=== PATIENT | female | born 1990 | race Caucasian/White ===

== ENCOUNTER 2021-06-06 10:37 | Emergency (ER) | payer OTHER, SELFPAY ==
--- NOTE | ~2021-06-06 | CT_ITS ---
EXAMINATION: CT BRAIN AND CT CERVICAL SPINE WITHOUT CONTRAST. CLINICAL INFORMATION: Trauma. COMPARISON: None TECHNIQUE: 5 mm thin axial and reformatted 2 mm thin sagittal coronal images of brain were obtained without contrast. Subsequently 3 mm thin axial and reformatted 2 mm thin sagittal and coronal images of cervical spine were obtained without contrast. DLP 1109 mGy FINDINGS: BRAIN: There is no acute intra-axial, extra-axial bleed, masses and collection. There is no midline shift. The perez to white matter differentiation maintained normal. There is no lacunar infarction or edema seen. The lateral ventricles are symmetrical in size and configuration without enlargement. Bone windows reveal no calvarial abnormality. There is no scalp soft tissue abnormality seen. Bilateral paranasal sinuses and mastoid air cells are well aerated and unremarkable. CERVICAL SPINE: There is mild straightening of cervical lordosis. The vertebral heights, alignment and disc heights are normal. The craniovertebral junction and the C1-C2 alignment is normal. There is mild uncovertebral hypertrophic changes at the C3-C4 disc level moderately narrowing the right neural foramina. Rest the disc levels are unremarkable. The prevertebral soft tissues are normal. The thyroid lobes are symmetrical and normal. The airway is widely patent. CT/CT cervical spine wo con IMPRESSION: No acute intracranial process seen. Mild straightening of cervical lordosis without any acute fracture or dislocation. Moderate narrowing of C3-4 neural foramina from uncovertebral hypertrophic changes.
--- NOTE | ~2021-06-06 | XR_ITS ---
EXAMINATION: XR LUMBOSACRAL SPINE CLINICAL INFORMATION: Trauma COMPARISON: None TECHNIQUE: Three views of the lumbosacral spine. FINDINGS: There is normal alignment of the lumbar spine. Vertebral body heights are maintained. No acute fracture or dislocation. There is a small benign appearing bony excrescence along the anterior aspect of the L2 vertebral body. There are early endplate osteophytes at L4 and L5. The posterior elements are intact. No spondylolysis or spondylolisthesis. The paravertebral soft tissues are normal. XR/XR lumbar spine 2-3V IMPRESSION: No acute fracture or dislocation. Minimal early degenerative changes.
--- NOTE | ~2021-06-06 | CT_ITS ---
EXAMINATION: CT BRAIN AND CT CERVICAL SPINE WITHOUT CONTRAST. CLINICAL INFORMATION: Trauma. COMPARISON: None TECHNIQUE: 5 mm thin axial and reformatted 2 mm thin sagittal coronal images of brain were obtained without contrast. Subsequently 3 mm thin axial and reformatted 2 mm thin sagittal and coronal images of cervical spine were obtained without contrast. DLP 1109 mGy FINDINGS: BRAIN: There is no acute intra-axial, extra-axial bleed, masses and collection. There is no midline shift. The perez to white matter differentiation maintained normal. There is no lacunar infarction or edema seen. The lateral ventricles are symmetrical in size and configuration without enlargement. Bone windows reveal no calvarial abnormality. There is no scalp soft tissue abnormality seen. Bilateral paranasal sinuses and mastoid air cells are well aerated and unremarkable. CERVICAL SPINE: There is mild straightening of cervical lordosis. The vertebral heights, alignment and disc heights are normal. The craniovertebral junction and the C1-C2 alignment is normal. There is mild uncovertebral hypertrophic changes at the C3-C4 disc level moderately narrowing the right neural foramina. Rest the disc levels are unremarkable. The prevertebral soft tissues are normal. The thyroid lobes are symmetrical and normal. The airway is widely patent. CT/CT head/brain w con IMPRESSION: No acute intracranial process seen. Mild straightening of cervical lordosis without any acute fracture or dislocation. Moderate narrowing of C3-4 neural foramina from uncovertebral hypertrophic changes.
[2021-06-06 10:47] VITALS: BP 160/90; PULSE 76; O2SAT 98
[2021-06-06 10:51] VITALS: BP 137/84; PULSE 75; RESP 16; TEMP 36.7; O2SAT 95; BMI 33.6
--- NOTE | 2021-06-06 11:16 | ED.FALL ---
HPI - Fall General Chief Complaint: Fall Stated Complaint: FALL ON ICE,HEAD STRIKE,-LOC Time Seen by Provider: 06/06/21 11:14 Source: patient Mode of arrival: EMS Limitations: no limitations History of Present Illness HPI Narrative: This is a 50 years old female with slipped in the ice hit the back of the head she is complaining of a headache and neck pain your stitches complaining of lower back pain there is no LOC no vomiting MD complaint: fall Onset (ago): hour(s) (1) Fall from: standing Place fall occurred: street Loss of consciousness: none Prolonged down time: no Symptoms prior to fall: none Context: tripped/slipped Location of injury: head Related Data Allergies Allergy/AdvReac Type Severity Reaction Status Date / Time No Known Allergies Allergy Verified 06/06/21 10:54 [No Known Allergies*] Review of Systems Constitutional: Constitutional: Reports no additional constitutional complaints and Denies weakness Eyes: Eyes: Reports no additional eye complaints ENT: Denies disequilibrium Cardiovascular: Cardiovascular: Reports no additional cardiovascular complaints Respiratory: Respiratory: Reports no additional respiratory complaints Musculoskeletal: Musculoskeletal: Denies tingling Neurologic: Denies convulsions, Denies Sensory deficit (Neuro), Denies tingling, Denies disequilibrium and Denies weakness PMFSH Past Medical History Medical History Acute kidney injury High cholesterol Surgical History H/O gastric sleeve Social History Social History Advance Directives: No Advance Directives Information Provided: No Physical Exam Vital Signs: Vital Signs: Last Vital Signs Temp 98.0 F 06/06/21 10:51 Pulse 75 06/06/21 10:51 Resp 16 06/06/21 10:51 BP 137/84 06/06/21 10:51 Pulse Ox 95 06/06/21 10:51 BMI result Body Mass Index 33.6 Const: General: cooperative, comfortable and no acute distress Orientation/consciousness: oriented to person and patient oriented x3 Limitations: no limitations HENMT: Other: abrasion occipital area Head: Yes normal to inspection and Yes other (snall abrasion occipital area) General nose exam: Normal external nose present Face and sinus: Yes normal facial exam Mouth: Normal oral and palatal mucosa present Throat: Yes posterior oropharynx normal Neck: Neck: Yes normal visual inspection and Yes full ROM Thyroid: Thyroid normal Chest: Chest palpation & inspection: normal inspection of the chest Resp: Effort & Inspection: normal respiratory effort Auscultation: clear to auscultation bilaterally Cardio: Jugular venous distension: no JVD Rhythm: regular rhythm GI: Inspection: Yes normal to inspection Palpation (GI): Soft to palpation, not firm, nontender and no guarding Back/Spine/Pelvis: Back: other (Tenderness LS spine present) Skin: General skin exam: no rashes or lesions noted, elasticity normal and turgor normal Lesions: no lesions Rashes: no rashes Neuro: General: oriented to person and patient oriented x3 Cranial nerves: Yes CN's II-XII intact bilaterally Sensory Exam: No Sensory deficit (Neuro) Course Reevaluation(s) Reevaluation #1: Patient is doing better imaging negative including head CT/C-spine CT, LS spine x-ray. At this time we will discharge her home . MDM - Fall Imaging Data head ct and c spine ct: Radiologist's impression: BRAIN: There is no acute intra-axial, extra-axial bleed, masses and collection. There is no midline shift. The perez to white matter differentiation maintained normal. There is no lacunar infarction or edema seen. The lateral ventricles are symmetrical in size and configuration without enlargement. Bone windows reveal no calvarial abnormality. There is no scalp soft tissue abnormality seen. Bilateral paranasal sinuses and mastoid air cells are well aerated and unremarkable. CERVICAL SPINE: There is mild straightening of cervical lordosis. The vertebral heights, alignment and disc heights are normal. The craniovertebral junction and the C1-C2 alignment is normal. There is mild uncovertebral hypertrophic changes at the C3-C4 disc level moderately narrowing the right neural foramina. Rest the disc levels are unremarkable. The prevertebral soft tissues are normal. The thyroid lobes are symmetrical and normal. The airway is widely patent. CT/CT cervical spine wo con IMPRESSION: No acute intracranial process seen. ? Mild straightening of cervical lordosis without any acute fracture or dislocation. Moderate narrowing of C3-4 neural foramina from uncovertebral hypertrophic changes. Dictated By: Antonio Odell MD Signed By: <Electronically signed by Antonio Odell MD in [place]> 06/06/21 1313 LSSPINE: Radiologist's impression: CLINICAL INFORMATION: Trauma COMPARISON: None TECHNIQUE: Three views of the lumbosacral spine. FINDINGS: There is normal alignment of the lumbar spine. Vertebral body heights are maintained. No acute fracture or dislocation. There is a small benign appearing bony excrescence along the anterior aspect of the L2 vertebral body. There are early endplate osteophytes at L4 and L5. The posterior elements are intact. No spondylolysis or spondylolisthesis. The paravertebral soft tissues are normal. XR/XR lumbar spine 2-3V IMPRESSION: No acute fracture or dislocation. ? Minimal early degenerative changes. Dictated By: BLADIMIR TIDWELL MD Signed By: <Electronically signed by BLADIMIR TIDWELL MD in [place]> 06/06/21 1249 DD/ 1206 TD/TT:? Field Control Inspector: Discharge Plan Discharge Clinical Impression: Fall, Head injury, Back contusion Patient Disposition: Home, Self-Care Instructions: Head Injury (ED) Referrals: Pravin Keene MD [Primary Care Provider] - 2 days Stand Alone Forms: Work/School Release Interventions: ED Discharge Assessment Last Done: 06/06/21 14:23 Discharge Date/Time: 06/06/21 14:23
[2021-06-06] MEDS: Acetaminophen 325 MG TABLET 650 MG PO (14:17)
== END 2021-06-06 14:23 | disposition home or self-care (01) ==
PROVIDERS: Emergency Provider Emergency Medicine; PCP Internal Medicine
DX: S09.90XA Unspecified injury of head, initial encounter (principal); S30.0XXA Contusion of lower back and pelvis, initial encounter; W00.0XXA Fall on same level due to ice and snow, initial encounter; Y93.9 Activity, unspecified; Y92.410 Unspecified street and highway as the place of occurrence of the external cause; Y99.9 Unspecified external cause status
CPT/HCPCS: 70460; 72100; 72125; 99283; 99284